=== PATIENT | female | born 1995 | race American Indian/Alaskan Native ===

== ENCOUNTER 2019-05-11 20:10 | Outpatient (CLI) | payer OTHER ==
[2019-05-11 21:55] VITALS: BP 125/60
== END 2019-05-11 21:56 | disposition home or self-care (01) ==
LOC: TRG 20:10
PROVIDERS: ATTEND Obstetrics & Gynecology
DX: O26.892 Other specified pregnancy related conditions, second trimester (principal); R06.02 Shortness of breath; Z3A.22 22 weeks gestation of pregnancy
CPT/HCPCS: 59025

== ENCOUNTER 2019-09-20 20:46 | Inpatient (IN) | payer OTHER ==
--- NOTE | 2019-09-20 22:47 | History and Physical Report ---
History of Present Illness Date of examination: 09/20/19 (41.3 wks IOL for postdates) Date of admission: 09/20/19 20:46 Chief complaint: I'm here for my induction because I am overdue. History of present illness: EDC Calculations LMP: 09/02/2019 EDC Confirmation: 09/10/2019 Gestational Age: 10 5/7 weeks Past History : 1 Term Births: 0 Premature Births: 0 Living Children: 0 Para: 0 Mult. Births: 0 Prev : 0 Prev. attempt? 0 Aborta: 0 Elect. Ab: 0 Spont. 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 lives with FOC works [employer] target ETOH use last time 12/2018. denies tobacco or drugs Infection History Hx of STD: none HIV Risk Eval: no Hepatitis B Risk Eval: low risk Personal hx. of genital herpes: no Partner hx. of genital herpes: no Rash, Viral, or Febrile illness since last LMP? no Varicella/Chicken Pox Status: Immunized TB Risk: no Genetic History Congenital Heart Defect: Mom: no Dad: no Melly Disease: Mom: no Dad: no Thalassemia Mom: no Dad: no Neural Tube Defect Mom: no Dad: no Down's Syndrome Mom: yes Dad: no Comments: pt uncle Inder-Sachs Mom: no Dad: no Sickle Cell Disease/Trait Mom: no Dad: no Hemophilia Mom: no Dad: no Muscular Dystrophy Mom: no Dad: no Cystic Fibrosis Mom: no Dad: no [place] Chorea Mom: no Dad: no Mental Retardation Mom: no Dad: no Fragile X Mom: no Dad: no Other Genetic/Chromosomal Disorder Mom: no Dad: no Child w/other defect Mom: no Dad: no Enviromental Exposures Enviromental Exposures Reviewed Xray Exposure: no Medication, drug, or alcohol use since LMP: no Chemical/Other Exposure: no Exposure to Cat Liter: no Hx of Parvovirus (Fifth Disease): no Occupational Exposure to Children: none Active Medications (reviewed today): ZOFRAN ODT 8 MG ORAL TABLET DISINTEGRATING (ONDANSETRON) 1 po q12hrs prn PNV () Current Allergies (reviewed today): No known allergies Past History - Obstetrical History : 1 Medications and Allergies Allergies Allergy/AdvReac Type Severity Reaction Status Date / Time No Known Allergies Allergy Verified 09/20/19 23:00 Home Medications Medication Instructions Recorded Confirmed Last Taken Type Complete Caplet 1 DAILY 09/20/19 09/19/19 History 0800 - Vital Signs Vital signs: Vital Signs Pulse Pulse Ox 101 H 98 09/20/19 21:11 09/20/19 21:11 Temp Pulse Resp BP Pulse Ox 98.4 F 97 H 16 120/68 97 09/20/19 21:20 09/20/19 22:06 09/20/19 21:20 09/20/19 21:38 09/20/19 22:06 - Physical Exam Breasts: Positive: deferred Cardiovascular: Regular rate, Normal S1, Normal S2 Lungs: Positive: Normal air movement Abdomen: Positive: normal appearance, soft, normal bowel sounds. Negative: distention, tenderness Genitourinary (Female): Positive: normal external genitalia, normal perenium Vulva: both: normal Vagina: Positive: normal moisture. Negative: discharge Cervix: Negative: lesion, discharge Uterus: Positive: normal size, normal contour Anus/Rectum: Positive: normal perianal skin, heme negative. Negative: rectal mass, hemorrhoids Extremities: Positive: normal Deep Tendon Reflex Grade: Normal +2 - Obstetrical FHR: auscultation normal, category 1 Uterine Contraction Monitor Mode: External Cervical Dilatation: 0 Cervical Effacement Percentage: 0 station: -3 Uterine Contraction Pattern: Absent Results Result Diagrams: 09/20/19 23:40 All other labs normal. GBS POSITIVE HBsAg Screen Negative Negative *1 RPR Non Reactive Non Reactive *2 Rubella Antibodies, IgG 4.25 index Immune >0.99 *3 Non-immune <0.90 Equivocal 0.90 - 0.99 Immune >0.99 ABO Grouping B *4 Rh Factor Positive *5 Please note: Prior records for this patient's ABO / Rh type are not available for additional verification. Antibody Screen See Final Results Negative *6 Tests: (2) Ab Scr+Antibody ID ([id number]) ! Antibody Screen Negative Negative *7 ! Antibody Id. #1 TNP (X) *8 Test not performed ! Masood Titer #1 <No Reported Value> *9 ! Antibody Id. #2 <No Reported Value> *10 ! Masood Titer #2 <No Reported Value> *11 Tests: (3) Profile I ([id number]) WBC 7.1 x10E3/uL 3.4-10.8 *12 RBC 4.06 x10E6/uL 3.77-5.28 *13 Hemoglobin [L] 10.5 g/dL 11.1-15.9 *14 Hematocrit [L] 33.2 % 34.0-46.6 *15 MCV 82 fL 79-97 *16 MCH [L] 25.9 pg 26.6-33.0 *17 MCHC 31.6 g/dL 31.5-35.7 *18 RDW 15.4 % 12.3-15.4 *19 Platelets 308 x10E3/uL 150-450 *20 Neutrophils 66 % Not Estab. *21 Lymphs 26 % Not Estab. *22 Monocytes 6 % Not Estab. *23 Eos 2 % Not Estab. *24 Basos 0 % Not Estab. *25 ! Immature Cells <No Reported Value> *26 Neutrophils (Absolute) 4.7 x10E3/uL 1.4-7.0 *27 Lymphs (Absolute) 1.9 x10E3/uL 0.7-3.1 *28 Monocytes(Absolute) 0.4 x10E3/uL 0.1-0.9 *29 Eos (Absolute) 0.1 x10E3/uL 0.0-0.4 *30 Baso (Absolute) 0.0 x10E3/uL 0.0-0.2 *31 ! Immature Granulocytes 0 % Not Estab. *32 ! Immature Grans (Abs) 0.0 x10E3/uL 0.0-0.1 *33 ! NRBC <No Reported Value> *34 Hematology Comments: <No Reported Value> *35 Tests: (4) Panel [id number] ([id number]) HIV Screen 4th Generation wRfx Non Reactive Non Reactive *36 Tests: (5) Gest. Diabetes 1-Hr Screen ([id number]) ! Gestational Diabetes Screen 81 mg/dL 65-139 *37 According to ADA, a glucose threshold of >139 mg/dL after 50-gram load identifies approximately 80% of women with gestational diabetes mellitus, while the sensitivity is further increased to approximately 90% by a threshold of >129 mg/dL. Tests: (6) HCV Ab w/Rflx to Verification ([id number]) ! HCV Ab <0.1 s/co ratio 0.0-0.9 *38 Tests: (7) Comment: ([id number]) ! Comment: SPRCS *39 Non reactive HCV antibody screen is consistent with no HCV infection, unless recent infection is suspected or other evidence exists to indicate HCV infection. Tests: (8) Urine Culture, Routine ([id number]) Urine Culture, Routine Final report *40 Tests: (9) Result ([id number]) ! Result 1 MTWO *41 Greater than 2 organisms recovered, none predominant. Please submit another sample if clinically indicated. Greater than 100,000 colony forming units per mL Assessment and Plan A: 24 y.o. @ 41.3 wks for IOL d/t postdates, Cervical exam cl/th/hi. P: Admit to L&D. Cervidil ordered to be placed. Monitor maternal and status. - Patient Problems (1) Post-dates Onset Date: ~09/21/19 Current Visit: Yes Status: Acute Plan to address problem: IOL to start with cervidil. (2) GBS (group B streptococcus) infection Onset Date: ~09/21/19 Current Visit: Yes Status: Acute Plan to address problem: Antibiotics ordered to be given until delivery.
[2019-09-20] MEDS ORDERED: ONDANSETRON 4 MG/2 ML INJ IV PRN (22:50)
[2019-09-20] MEDS ORDERED: MINERAL OIL 30 ML ORAL LIQD PO PRN (22:50)
[2019-09-20] MEDS ORDERED: TERBUTALINE 1 MG/1 ML INJ IVP PRN (22:50)
[2019-09-20] MEDS ORDERED: PROMETHAZINE 25 MG TAB PO PRN (22:50)
[2019-09-20] MEDS ORDERED: fentaNYL 100 MCG/2 ML INJ IV PRN (22:50)
[2019-09-20] MEDS ORDERED: LIDOCAINE (2%) 20 MG/1 ML VIAL 20 ML MDV INFILTRATI ONE (22:50)
[2019-09-20] MEDS ORDERED: NALOXONE 0.4 MG/1 ML INJ IV PRN (22:50)
[2019-09-20] MEDS ORDERED: DINOPROSTONE 10 MG VAG SUPP VG ONE (22:50)
[2019-09-20] MEDS ORDERED: TERBUTALINE 1 MG/1 ML INJ SUB-Q PRN (22:50)
[2019-09-20] MEDS ORDERED: AMPICILLIN/NS 2 GM/100 ML 2 GM/100 ML BAG IV ONE (22:50)
[2019-09-20] MEDS ORDERED: OXYTOCIN 20 UNIT/1000ML DRIP 20 UNITS/1,000 ML BAG IV SCH (23:00)
[2019-09-21 00:13] LABS: Basophils % (Auto) 0.4 % (0.0-1.8); Eosinophils # (Auto) 0.1 K/mm3 (0.0-0.4); Eosinophils % (Auto) 0.6 % (0.0-4.3); Hematocrit 30.1 % (30.3-42.9); Hemoglobin 10.2 gm/dl (10.1-14.3); Lymphocytes # (Auto) 2.4 K/mm3 (1.2-5.4); Lymphocytes % (Auto) 22.5 % (13.4-35.0); Mean Corpuscular HGB Conc 34 % (30-34); Mean Corpuscular Volume 83 fl (79-97); Monocytes # (Auto) 0.7 K/mm3 (0.0-0.8); Monocytes % (Auto) 6.2 % (0.0-7.3); Platelet Count 309 K/mm3 (140-440); Red Blood Count 3.65 M/mm3 (3.65-5.03); Red Cell Distribution Width 15.4 % (13.2-15.2)
--- NOTE | 2019-09-21 02:08 | Event Note ---
Date: 09/21/19 (SROM, light mec) Received a call from RN to state that the pt had SROM for light mec. Exam basically unchanged. Will start low dose pitocin for now.
[2019-09-21] MEDS ORDERED: OXYTOCIN DRIP 30,000 MILLIUNITS/500 ML BAG IV ONE (02:14)
[2019-09-21] MEDS ORDERED: OXYTOCIN DRIP 30 UNITS/500 ML BAG IV SCH ×3 (03:00→08:00)
[2019-09-21] MEDS: AMPICILLIN/NS 1 GM/50 ML 1 GM/50 ML BAG IV SCH ×4 (07:02→19:57)
--- NOTE | 2019-09-21 08:37 | Progress Note ---
Assessment and Plan reviewed plan with patient, some exceptions might be warranted based on situation, patient verbalizes understanding. Will start increasing pitocin q4hrs for adequate labor. limit SVE d/t SROM @ 0200. Plan to reassess @ noon if no signs of progression of labor. Patient aware she may ask for pain medication or epidural any time she feels she needs it. 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 (3) GBS (group B streptococcus) infection Onset Date: ~09/21/19 Current Visit: Yes Status: Acute Plan to address problem: ampicillin q4hrs until delivery Subjective - Subjective Date of service: 09/21/19 Principal diagnosis: IOL @ 41+4, IOL for postdates, light mec fluid, GBS + Patient reports: loss of fluid, movement normal, contractions, no new complaints (denies need for pain medication), no vaginal bleeding Objective - Vital Signs Vital Signs: Vital Signs - 12hr 09/20/19 09/20/19 09/20/19 21:11 21:16 21:20 Temperature 98.4 F Pulse Rate 101 H 99 H 96 H Respiratory 16 Rate Blood Pressure Blood Pressure 120/68 [Left] O2 Sat by Pulse 98 96 99 Oximetry 09/20/19 09/20/19 09/20/19 21:21 21:26 21:31 Temperature Pulse Rate 95 H 93 H 94 H Respiratory Rate Blood Pressure Blood Pressure [Left] O2 Sat by Pulse 98 98 97 Oximetry 09/20/19 09/20/19 09/20/19 21:36 21:38 21:41 Temperature Pulse Rate 98 H 96 H 104 H Respiratory Rate Blood Pressure 120/68 Blood Pressure [Left] O2 Sat by Pulse 98 97 Oximetry 09/20/19 09/20/19 09/20/19 21:46 21:51 21:56 Temperature Pulse Rate 110 H 93 H 95 H Respiratory Rate Blood Pressure Blood Pressure [Left] O2 Sat by Pulse 97 97 97 Oximetry 09/20/19 09/20/19 09/21/19 22:01 22:06 01:45 Temperature 98.4 F Pulse Rate 90 97 H Respiratory Rate Blood Pressure Blood Pressure [Left] O2 Sat by Pulse 97 97 Oximetry 0409/21/19 09/21/19 02:20 02:23 02:25 Temperature Pulse Rate 91 H 91 H 88 Respiratory Rate Blood Pressure 116/54 Blood Pressure [Left] O2 Sat by Pulse 98 97 Oximetry 09/21/19 09/21/19 09/21/19 02:30 02:35 02:40 Temperature Pulse Rate 94 H 85 88 Respiratory Rate Blood Pressure Blood Pressure [Left] O2 Sat by Pulse 97 97 97 Oximetry 09/21/19 09/21/19 09/21/19 02:45 02:50 02:51 Temperature Pulse Rate 86 83 83 Respiratory Rate Blood Pressure 105/56 Blood Pressure [Left] O2 Sat by Pulse 97 97 Oximetry 09/21/19 09/21/19 09/21/19 02:55 03:00 03:01 Temperature Pulse Rate 87 88 92 H Respiratory Rate Blood Pressure Blood Pressure [Left] O2 Sat by Pulse 97 96 94 Oximetry 09/21/19 09/21/19 09/21/19 03:05 03:07 03:10 Temperature Pulse Rate 93 H 88 100 H Respiratory Rate Blood Pressure Blood Pressure [Left] O2 Sat by Pulse 95 94 96 Oximetry 09/21/19 09/21/19 09/21/19 03:15 03:20 03:21 Temperature Pulse Rate 84 88 84 Respiratory Rate Blood Pressure 108/53 Blood Pressure [Left] O2 Sat by Pulse 96 97 Oximetry 09/21/19 09/21/19 09/21/19 03:25 03:30 03:32 Temperature Pulse Rate 87 81 94 H Respiratory Rate Blood Pressure Blood Pressure [Left] O2 Sat by Pulse 97 96 94 Oximetry 09/21/19 09/21/19 09/21/19 03:35 03:40 03:45 Temperature Pulse Rate 88 84 92 H Respiratory Rate Blood Pressure Blood Pressure [Left] O2 Sat by Pulse 95 96 95 Oximetry 09/21/19 09/21/19 09/21/19 03:50 03:51 03:55 Temperature Pulse Rate 83 78 80 Respiratory Rate Blood Pressure 106/54 Blood Pressure [Left] O2 Sat by Pulse 97 96 Oximetry 09/21/19 09/21/19 09/21/19 04:11 04:16 04:21 Temperature Pulse Rate 96 H 98 H 86 Respiratory Rate Blood Pressure 102/56 Blood Pressure [Left] O2 Sat by Pulse 98 97 97 Oximetry 09/21/19 09/21/19 09/21/19 04:26 04:31 04:36 Temperature Pulse Rate 91 H 94 H 96 H Respiratory Rate Blood Pressure Blood Pressure [Left] O2 Sat by Pulse 97 98 97 Oximetry 09/21/19 09/21/19 09/21/19 04:41 04:46 04:51 Temperature Pulse Rate 82 93 H 83 Respiratory Rate Blood Pressure 108/51 Blood Pressure [Left] O2 Sat by Pulse 97 97 97 Oximetry 09/21/19 09/21/19 09/21/19 04:56 05:01 05:06 Temperature Pulse Rate 94 H 91 H 94 H Respiratory Rate Blood Pressure Blood Pressure [Left] O2 Sat by Pulse 98 98 98 Oximetry 09/21/19 09/21/19 09/21/19 05:11 05:16 05:21 Temperature Pulse Rate 82 82 81 Respiratory Rate Blood Pressure Blood Pressure [Left] O2 Sat by Pulse 98 97 98 Oximetry 09/21/19 09/21/19 09/21/19 05:23 05:26 05:31 Temperature Pulse Rate 82 101 H 82 Respiratory Rate Blood Pressure 104/58 Blood Pressure [Left] O2 Sat by Pulse 99 97 Oximetry 09/21/19 09/21/19 09/21/19 05:36 05:41 05:46 Temperature Pulse Rate 89 87 86 Respiratory Rate Blood Pressure Blood Pressure [Left] O2 Sat by Pulse 97 97 97 Oximetry 09/21/19 09/21/19 09/21/19 05:51 05:56 06:01 Temperature Pulse Rate 90 84 81 Respiratory Rate Blood Pressure 121/65 Blood Pressure [Left] O2 Sat by Pulse 98 97 98 Oximetry 09/21/19 09/21/19 09/21/19 06:06 06:11 06:16 Temperature Pulse Rate 86 81 89 Respiratory Rate Blood Pressure Blood Pressure [Left] O2 Sat by Pulse 96 97 100 Oximetry 09/21/19 09/21/19 09/21/19 06:21 06:26 06:31 Temperature Pulse Rate 95 H 90 86 Respiratory Rate Blood Pressure Blood Pressure [Left] O2 Sat by Pulse 99 99 97 Oximetry 09/21/19 09/21/19 09/21/19 06:36 06:41 06:46 Temperature Pulse Rate 87 82 88 Respiratory Rate Blood Pressure Blood Pressure [Left] O2 Sat by Pulse 97 96 97 Oximetry 09/21/19 09/21/1909/20/20 06:51 06:56 07:01 Temperature Pulse Rate 87 80 86 Respiratory Rate Blood Pressure 135/66 Blood Pressure [Left] O2 Sat by Pulse 98 98 98 Oximetry 09/21/19 09/21/19 09/21/19 07:06 07:11 07:16 Temperature Pulse Rate 86 86 91 H Respiratory Rate Blood Pressure Blood Pressure [Left] O2 Sat by Pulse 98 98 97 Oximetry 09/21/19 09/21/19 09/21/19 07:21 07:26 07:30 Temperature Pulse Rate 93 H 85 92 H Respiratory Rate Blood Pressure 137/63 Blood Pressure [Left] O2 Sat by Pulse 97 96 94 Oximetry 09/21/19 09/21/19 09/21/19 07:31 07:51 08:21 Temperature Pulse Rate 92 H 93 H 100 H Respiratory Rate Blood Pressure 113/78 117/76 Blood Pressure [Left] O2 Sat by Pulse 98 Oximetry - Exam Breasts: normal Cardiovascular: Regular rate Lungs: Clear to auscultation, Normal air movement Abdomen: Present: normal appearance, soft Vulva: both: normal Uterus: Present: normal, fundal height above umbilicus FHR: auscultation normal, category 1 Uterine Contraction Monitor Mode: External Uterine Contraction Frequency (min): 2-4 Uterine Contraction Duration: 60 Uterine Contraction Pattern: Regular Uterine Tone Measurement Phase: Contraction Uterine Contraction Intensity: Mild Extremities: normal Deep Tendon Reflex Grade: Normal +2 - Labs Labs: Abnormal Labs 09/20/19 23:40 Hct 30.1 L RDW 15.4 H Seg Neutrophils % 70.3 H Laboratory Results - last 24 hr 09/20/19 09/20/19 23:40 23:40 WBC 10.5 RBC 3.65 Hgb 10.2 Hct 30.1 L MCV 83 MCH 28 MCHC 34 RDW 15.4 H Plt Count 309 Lymph % (Auto) 22.5 [place] % (Auto) 6.2 Eos % (Auto) 0.6 Baso % (Auto) 0.4 Lymph # 2.4 [place] # 0.7 Eos # 0.1 Baso # 0.0 Seg Neutrophils % 70.3 H Seg Neutrophils # 7.4 Blood Type B POSITIVE Antibody Screen Negative
--- NOTE | 2019-09-21 10:25 | Event Note ---
Date: 09/21/19 Plan of care and nature of serial IOL were d/w pt and questions were addressed and answered. Pt agrees with plan of care at this tiem
[2019-09-21] MEDS: LACTATED RINGERS 1,000 ML IV SCH ×3 (11:18→19:57)
--- NOTE | 2019-09-21 12:43 | Progress Note ---
Assessment and Plan patient doing well with ctx, SVE 4/70/0, posterior. Pt agreed to having IUPC placed. Placed without difficulty. Will continue to titrate pitocin for adequate labor. - Patient Problems (1) 41 weeks gestation of Current Visit: Yes Status: Acute (2) Meconium in amniotic fluid Current Visit: Yes Status: Acute (3) GBS (group B streptococcus) infection Onset Date: ~09/21/19 Current Visit: Yes Status: Acute Subjective - Subjective Date of service: 09/21/19 Principal diagnosis: IOL @ 41+4, IOL for postdates, light mec fluid, GBS + Patient reports: loss of fluid, movement normal, contractions, no new complaints (denies need for pain medication), no vaginal bleeding Objective - Vital Signs Vital Signs: Vital Signs - 12hr 09/21/19 09/21/19 09/21/19 01:45 02:20 02:23 Temperature 98.4 F Pulse Rate 91 H 91 H Respiratory Rate Blood Pressure 116/54 O2 Sat by Pulse 98 Oximetry 09/21/19 09/21/19 09/21/19 02:25 02:30 02:35 Temperature Pulse Rate 88 94 H 85 Respiratory Rate Blood Pressure O2 Sat by Pulse 97 97 97 Oximetry 09/21/19 09/21/19 09/21/19 02:40 02:45 02:50 Temperature Pulse Rate 88 86 83 Respiratory Rate Blood Pressure O2 Sat by Pulse 97 97 97 Oximetry 09/21/19 09/21/19 09/21/19 02:51 02:55 03:00 Temperature Pulse Rate 83 87 88 Respiratory Rate Blood Pressure 105/56 O2 Sat by Pulse 97 96 Oximetry 09/21/19 09/21/19 09/21/19 03:01 03:05 03:07 Temperature Pulse Rate 92 H 93 H 88 Respiratory Rate Blood Pressure O2 Sat by Pulse 94 95 94 Oximetry 09/21/19 09/21/19 09/21/19 03:10 03:15 03:20 Temperature Pulse Rate 100 H 84 88 Respiratory Rate Blood Pressure O2 Sat by Pulse 96 96 97 Oximetry 09/21/19 09/21/19 09/21/19 03:21 03:25 03:30 Temperature Pulse Rate 84 87 81 Respiratory Rate Blood Pressure 108/53 O2 Sat by Pulse 97 96 Oximetry 09/21/19 09/21/19 09/21/19 03:32 03:35 03:40 Temperature Pulse Rate 94 H 88 84 Respiratory Rate Blood Pressure O2 Sat by Pulse 94 95 96 Oximetry 09/21/19 09/21/19 09/21/19 03:45 03:50 03:51 Temperature Pulse Rate 92 H 83 78 Respiratory Rate Blood Pressure 106/54 O2 Sat by Pulse 95 97 Oximetry 09/21/19 09/21/19 09/21/19 03:55 04:11 04:16 Temperature Pulse Rate 80 96 H 98 H Respiratory Rate Blood Pressure O2 Sat by Pulse 96 98 97 Oximetry 09/21/19 09/21/19 09/21/19 04:21 04:26 04:31 Temperature Pulse Rate 86 91 H 94 H Respiratory Rate Blood Pressure 102/56 O2 Sat by Pulse 97 97 98 Oximetry 09/21/19 09/21/19 09/21/19 04:36 04:41 04:46 Temperature Pulse Rate 96 H 82 93 H Respiratory Rate Blood Pressure O2 Sat by Pulse 97 97 97 Oximetry 09/21/19 09/21/19 09/21/19 04:51 04:56 05:01 Temperature Pulse Rate 83 94 H 91 H Respiratory Rate Blood Pressure 108/51 O2 Sat by Pulse 97 98 98 Oximetry 09/21/19 09/21/19 09/21/19 05:06 05:11 05:16 Temperature Pulse Rate 94 H 82 82 Respiratory Rate Blood Pressure O2 Sat by Pulse 98 98 97 Oximetry 09/21/19 09/21/19 09/21/19 05:21 05:23 05:26 Temperature Pulse Rate 81 82 101 H Respiratory Rate Blood Pressure 104/58 O2 Sat by Pulse 98 99 Oximetry 09/21/19 09/21/19 09/21/19 05:31 05:36 05:41 Temperature Pulse Rate 82 89 87 Respiratory Rate Blood Pressure O2 Sat by Pulse 97 97 97 Oximetry 09/21/19 09/21/19 09/21/19 05:46 05:51 05:56 Temperature Pulse Rate 86 90 84 Respiratory Rate Blood Pressure 121/65 O2 Sat by Pulse 97 98 97 Oximetry 09/21/19 09/21/19 09/21/19 06:01 06:06 06:11 Temperature Pulse Rate 81 86 81 Respiratory Rate Blood Pressure O2 Sat by Pulse 98 96 97 Oximetry 04/28/20 04/28/20 04/28/20 06:16 06:21 06:26 Temperature Pulse Rate 89 95 H 90 Respiratory Rate Blood Pressure O2 Sat by Pulse 100 99 99 Oximetry 09/21/19 09/21/19 09/21/19 06:31 06:36 06:41 Temperature Pulse Rate 86 87 82 Respiratory Rate Blood Pressure O2 Sat by Pulse 97 97 96 Oximetry 09/21/19 09/21/19 09/21/19 06:46 06:51 06:56 Temperature Pulse Rate 88 87 80 Respiratory Rate Blood Pressure 135/66 O2 Sat by Pulse 97 98 98 Oximetry 09/21/19 09/21/19 09/21/19 07:01 07:06 07:10 Temperature 97.8 F Pulse Rate 86 86 Respiratory 18 Rate Blood Pressure O2 Sat by Pulse 98 98 Oximetry 09/21/19 09/21/19 09/21/19 07:11 07:16 07:21 Temperature Pulse Rate 86 91 H 93 H Respiratory Rate Blood Pressure 137/63 O2 Sat by Pulse 98 97 97 Oximetry 09/21/19 09/21/19 09/21/19 07:26 07:30 07:31 Temperature Pulse Rate 85 92 H 92 H Respiratory Rate Blood Pressure O2 Sat by Pulse 96 94 98 Oximetry 09/21/19 09/21/19 09/21/19 07:51 08:21 08:52 Temperature Pulse Rate 93 H 100 H 87 Respiratory Rate Blood Pressure 113/78 117/76 113/68 O2 Sat by Pulse Oximetry 09/21/19 09/21/19 09/21/19 09:10 09:21 10:18 Temperature 97.9 F Pulse Rate 91 H 102 H Respiratory 20 Rate Blood Pressure 129/86 105/68 O2 Sat by Pulse Oximetry 09/21/19 09/21/19 09/21/19 10:22 11:54 11:55 Temperature 98.2 F Pulse Rate 83 84 Respiratory 18 Rate Blood Pressure 128/83 121/61 O2 Sat by Pulse Oximetry 09/21/19 12:23 Temperature Pulse Rate 85 Respiratory Rate Blood Pressure 127/65 O2 Sat by Pulse Oximetry - Exam Breasts: normal Cardiovascular: Regular rate Lungs: Clear to auscultation, Normal air movement Abdomen: Present: normal appearance, soft Vulva: both: normal Uterus: Present: normal, fundal height above umbilicus FHR: category 1 Uterine Contraction Monitor Mode: Internal Cervical Dilatation: 4 Cervical Effacement Percentage: 70 station: 0 Uterine Contraction Frequency (min): 2-3.5 Uterine Contraction Duration: 60 Uterine Contraction Pattern: Regular Uterine Tone Measurement Phase: Contraction Uterine Contraction Intensity: Mild Extremities: normal Deep Tendon Reflex Grade: Normal +2 - Labs Labs: Abnormal Labs 09/20/19 23:40 Hct 30.1 L RDW 15.4 H Seg Neutrophils % 70.3 H Laboratory Results - last 24 hr 09/20/19 09/20/19 23:40 23:40 WBC 10.5 RBC 3.65 Hgb 10.2 Hct 30.1 L MCV 83 MCH 28 MCHC 34 RDW 15.4 H Plt Count 309 Lymph % (Auto) 22.5 [place] % (Auto) 6.2 Eos % (Auto) 0.6 Baso % (Auto) 0.4 Lymph # 2.4 [place] # 0.7 Eos # 0.1 Baso # 0.0 Seg Neutrophils % 70.3 H Seg Neutrophils # 7.4 Blood Type B POSITIVE Antibody Screen Negative
--- NOTE | 2019-09-21 15:51 | Progress Note ---
Assessment and Plan Patient called out with "I think it's time" SVE with very little change. pt c/o lower back pain and pressure. Assisted patient to hands and knees, FOC given direction on how to apply counter pressure. - Patient Problems (1) 41 weeks gestation of Current Visit: Yes Status: Acute (2) Meconium in amniotic fluid Current Visit: Yes Status: Acute Plan to address problem: NICU and [employer] aware (3) GBS (group B streptococcus) infection Onset Date: ~09/21/19 Current Visit: Yes Status: Acute Plan to address problem: ampicillin q4hrs until delivery Subjective - Subjective Date of service: 09/21/19 Principal diagnosis: IOL @ 41+4, IOL for postdates, light mec fluid, GBS + Patient reports: loss of fluid, movement normal, contractions, no new complaints (denies need for pain medication), no vaginal bleeding Objective - Vital Signs Vital Signs: Vital Signs - 12hr 09/21/19 09/21/19 09/21/19 03:40 03:45 03:50 Temperature Pulse Rate 84 92 H 83 Respiratory Rate Blood Pressure O2 Sat by Pulse 96 95 97 Oximetry 09/21/19 09/21/19 09/21/19 03:51 03:55 04:11 Temperature Pulse Rate 78 80 96 H Respiratory Rate Blood Pressure 106/54 O2 Sat by Pulse 96 98 Oximetry 09/21/19 09/21/19 09/21/19 04:16 04:21 04:26 Temperature Pulse Rate 98 H 86 91 H Respiratory Rate Blood Pressure 102/56 O2 Sat by Pulse 97 97 97 Oximetry 09/21/19 09/21/19 09/21/19 04:31 04:36 04:41 Temperature Pulse Rate 94 H 96 H 82 Respiratory Rate Blood Pressure O2 Sat by Pulse 98 97 97 Oximetry 09/21/19 09/21/19 09/21/19 04:46 04:51 04:56 Temperature Pulse Rate 93 H 83 94 H Respiratory Rate Blood Pressure 108/51 O2 Sat by Pulse 97 97 98 Oximetry 09/21/19 09/21/19 09/21/19 05:01 05:06 05:11 Temperature Pulse Rate 91 H 94 H 82 Respiratory Rate Blood Pressure O2 Sat by Pulse 98 98 98 Oximetry 09/21/19 09/21/19 09/21/19 05:16 05:21 05:23 Temperature Pulse Rate 82 81 82 Respiratory Rate Blood Pressure 104/58 O2 Sat by Pulse 97 98 Oximetry 09/21/19 09/21/19 09/21/19 05:26 05:31 05:36 Temperature Pulse Rate 101 H 82 89 Respiratory Rate Blood Pressure O2 Sat by Pulse 99 97 97 Oximetry 09/21/19 09/21/19 09/21/19 05:41 05:46 05:51 Temperature Pulse Rate 87 86 90 Respiratory Rate Blood Pressure 121/65 O2 Sat by Pulse 97 97 98 Oximetry 09/21/19 09/21/19 09/21/19 05:56 06:01 06:06 Temperature Pulse Rate 84 81 86 Respiratory Rate Blood Pressure O2 Sat by Pulse 97 98 96 Oximetry 09/21/19 09/21/19 09/21/19 06:11 06:16 06:21 Temperature Pulse Rate 81 89 95 H Respiratory Rate Blood Pressure O2 Sat by Pulse 97 100 99 Oximetry 09/21/19 09/21/19 09/21/19 06:26 06:31 06:36 Temperature Pulse Rate 90 86 87 Respiratory Rate Blood Pressure O2 Sat by Pulse 99 97 97 Oximetry 09/21/19 09/21/19 09/21/19 06:41 06:46 06:51 Temperature Pulse Rate 82 88 87 Respiratory Rate Blood Pressure 135/66 O2 Sat by Pulse 96 97 98 Oximetry 09/21/19 09/21/19 09/21/19 06:56 07:01 07:06 Temperature Pulse Rate 80 86 86 Respiratory Rate Blood Pressure O2 Sat by Pulse 98 98 98 Oximetry 09/21/19 09/21/19 09/21/19 07:10 07:11 07:16 Temperature 97.8 F Pulse Rate 86 91 H Respiratory 18 Rate Blood Pressure O2 Sat by Pulse 98 97 Oximetry 09/21/19 09/21/19 09/21/19 07:21 07:26 07:30 Temperature Pulse Rate 93 H 85 92 H Respiratory Rate Blood Pressure 137/63 O2 Sat by Pulse 97 96 94 Oximetry 09/21/19 09/21/19 09/21/19 07:31 07:51 08:21 Temperature Pulse Rate 92 H 93 H 100 H Respiratory Rate Blood Pressure 113/78 117/76 O2 Sat by Pulse 98 Oximetry 09/21/19 09/21/19 09/21/19 08:52 09:10 09:21 Temperature 97.9 F Pulse Rate 87 91 H Respiratory 20 Rate Blood Pressure 113/68 129/86 O2 Sat by Pulse Oximetry 09/21/19 09/21/19 09/21/19 10:18 10:22 11:54 Temperature Pulse Rate 102 H 83 84 Respiratory Rate Blood Pressure 105/68 128/83 121/61 O2 Sat by Pulse Oximetry 09/21/19 09/21/19 09/21/19 11:55 12:23 12:52 Temperature 98.2 F Pulse Rate 85 82 Respiratory 18 Rate Blood Pressure 127/65 129/64 O2 Sat by Pulse Oximetry 09/21/19 09/21/19 09/21/19 13:22 13:52 14:21 Temperature Pulse Rate 79 76 83 Respiratory Rate Blood Pressure 135/78 136/81 134/63 O2 Sat by Pulse Oximetry 09/21/19 09/21/19 09/21/19 14:30 14:52 15:22 Temperature 98.0 F Pulse Rate 76 105 H Respiratory 20 Rate Blood Pressure 116/58 131/86 O2 Sat by Pulse Oximetry - Exam Breasts: normal Cardiovascular: Regular rate Lungs: Normal air movement Abdomen: Present: normal appearance, soft Uterus: Present: normal, fundal height above umbilicus FHR: category 1 Uterine Contraction Monitor Mode: Internal Cervical Dilatation: 5 Cervical Effacement Percentage: 80 station: 0 Uterine Contraction Frequency (min): 2-3 Uterine Contraction Duration: 60 Uterine Contraction Pattern: Regular Uterine Tone Measurement Phase: Contraction Uterine Contraction Intensity: Mild Extremities: normal Deep Tendon Reflex Grade: Normal +2 - Labs Labs: Abnormal Labs 09/20/19 23:40 Hct 30.1 L RDW 15.4 H Seg Neutrophils % 70.3 H Laboratory Results - last 24 hr 09/20/19 09/20/19 23:40 23:40 WBC 10.5 RBC 3.65 Hgb 10.2 Hct 30.1 L MCV 83 MCH 28 MCHC 34 RDW 15.4 H Plt Count 309 Lymph % (Auto) 22.5 [place] % (Auto) 6.2 Eos % (Auto) 0.6 Baso % (Auto) 0.4 Lymph # 2.4 [place] # 0.7 Eos # 0.1 Baso # 0.0 Seg Neutrophils % 70.3 H Seg Neutrophils # 7.4 Blood Type B POSITIVE Antibody Screen Negative
--- NOTE | 2019-09-21 17:51 | Anesthesia Consultation ---
Anesthesia Consult and Med Hx Date of service: 09/21/19 - Airway Anesthetic Teeth Evaluation: Good ROM Head & Neck: Adequate Mental/Hyoid Distance: Adequate Mallampati Class: Class II Intubation Access Assessment: Probably Good - Pulmonary Exam CTA: Yes - Cardiac Exam Cardiac Exam: RRR - Pre-Operative Health Status ASA Pre-Surgery Classification: ASA2 Proposed Anesthetic Plan: Epidural - Pulmonary Hx Smoking: No Hx Asthma: No Hx Respiratory Symptoms: No SOB: No COPD: No Home Oxygen Therapy: No Hx Pneumonia: No Hx Sleep Apnea: No - Cardiovascular System Hx Hypertension: No Hx Coronary Artery Disease: No Hx Heart Attack/AMI: No Hx Angina: No Hx Percutaneous Transluminal Coronary Angioplasty (PTCA): No Hx Cardia Arrhythmia: No Hx Pacemaker: No Hx Internal Defibrillator: No Hx Valvular Heart Disease: No Hx Heart Murmur: No Hx Peripheral Vascular Disease: No - Central Nervous System Hx Neuromuscular Disorder: No Hx Seizures: No CVA: No Hx Back Pain: No Hx Psychiatric Problems: No - Gastrointestinal Hx Ulcer: No Hx Gastroesophageal Reflux Disease: No - Endocrine Hx Renal Disease: No Hx End Stage Renal Disease: No Hx Cirrhosis: No Hx Liver Disease: No Hx Insulin Dependent Diabetes: No Hx Non-Insulin Dependent Diabetes: No Hx Thyroid Disease: No Hx Hypothyroidism: No Hx Hyperthyroidism: No - Hematic Hx Anemia: No Hx Sickle Cell Disease: No - Other Systems Hx Alcohol Use: No Hx Substance Use: No Hx Cancer: No Hx Obesity: Yes
[2019-09-21] MEDS ORDERED: NALOXONE 2 MG/2 ML INJ IV PRN (17:52)
[2019-09-21] MEDS ORDERED: ePHEDrine SULFATE 50 MG/1 ML INJ IV PRN (17:52)
[2019-09-21] MEDS ORDERED: fentaNYL-BUPIV 2 MCG/ML-0.125% 200 MCG/100 ML BAG EPIDURAL SCH (18:00)
[2019-09-21] MEDS ORDERED: DEXMEDETOMIDINE 200 MCG/2 ML VIAL IV ONE (18:25)
--- NOTE | 2019-09-21 19:17 | Progress Note ---
Labor Epidural - Labor Epidural Start Time: 18:35 Stop Time: 18:39 Performed by:: PIPE LLOYD Procedure: Patient is requesting combined spinal epidural for labor and pain. H&P, labs were reviewed. All questions and concerns were answered. Informed consent was obtained. Timeout performed. Patient in sitting position on side of bed. Sterile prep and drape was performed. [3] mL 1% lidocaine skin wheal at L [3]-L [4]. 18-gauge Touhy epidural needle advanced to [id number] using air technique, [7cm]. 27-gauge spinal needle advanced [clear positive free- flowing] CSF. spinal dose of [Precedex 10 mcg]. Epidural catheter advanced to [12] cm. [Negative] Aspiration, [negative] test dose. Sterile dressing applied. Patient tolerated procedure well.
--- NOTE | 2019-09-21 19:19 | Progress Note ---
Assessment and Plan patient comfortable s/p epidural placement. She is happy she decided to proceed with epidural. SVE now 6-/-1. Plan to continue laboring and position changes, anticipate . - Patient Problems (1) 41 weeks gestation of Current Visit: Yes Status: Acute (2) Meconium in amniotic fluid Current Visit: Yes Status: Acute (3) GBS (group B streptococcus) infection Onset Date: ~09/21/19 Current Visit: Yes Status: Acute Subjective - Subjective Date of service: 09/21/19 Principal diagnosis: IOL @ 41+4, IOL for postdates, light mec fluid, GBS + Patient reports: loss of fluid, movement normal, contractions, no new complaints (denies need for pain medication), no vaginal bleeding Objective - Vital Signs Vital Signs: Vital Signs - 12hr 09/21/19 09/21/19 09/21/19 07:21 07:26 07:30 Temperature Pulse Rate 93 H 85 92 H Respiratory Rate Blood Pressure 137/63 O2 Sat by Pulse 97 96 94 Oximetry 09/21/19 09/21/19 09/21/19 07:31 07:51 08:21 Temperature Pulse Rate 92 H 93 H 100 H Respiratory Rate Blood Pressure 113/78 117/76 O2 Sat by Pulse 98 Oximetry 09/21/19 09/21/19 09/21/19 08:52 09:10 09:21 Temperature 97.9 F Pulse Rate 87 91 H Respiratory 20 Rate Blood Pressure 113/68 129/86 O2 Sat by Pulse Oximetry 09/21/19 09/21/19 09/21/19 10:18 10:22 11:54 Temperature Pulse Rate 102 H 83 84 Respiratory Rate Blood Pressure 105/68 128/83 121/61 O2 Sat by Pulse Oximetry 09/21/19 09/21/19 09/21/19 11:55 12:23 12:52 Temperature 98.2 F Pulse Rate 85 82 Respiratory 18 Rate Blood Pressure 127/65 129/64 O2 Sat by Pulse Oximetry 09/21/19 09/21/19 09/21/19 13:22 13:52 14:21 Temperature Pulse Rate 79 76 83 Respiratory Rate Blood Pressure 135/78 136/81 134/63 O2 Sat by Pulse Oximetry 09/21/19 09/21/19 09/21/19 14:30 14:52 15:22 Temperature 98.0 F Pulse Rate 76 105 H Respiratory 20 Rate Blood Pressure 116/58 131/86 O2 Sat by Pulse Oximetry 09/21/19 09/21/19 09/21/19 16:22 16:51 17:22 Temperature Pulse Rate 82 85 77 Respiratory Rate Blood Pressure 115/55 138/84 117/56 O2 Sat by Pulse Oximetry 09/21/19 09/21/19 09/21/19 17:52 18:22 18:33 Temperature Pulse Rate 84 71 85 Respiratory Rate Blood Pressure 120/57 121/59 O2 Sat by Pulse 99 Oximetry 09/21/19 09/21/19 09/21/19 18:38 18:43 18:47 Temperature Pulse Rate 86 80 90 Respiratory Rate Blood Pressure 136/73 O2 Sat by Pulse 99 99 Oximetry 09/21/19 09/21/19 09/21/19 18:48 18:50 18:53 Temperature Pulse Rate 92 H 100 H 90 Respiratory Rate Blood Pressure 138/80 135/68 O2 Sat by Pulse 100 100 Oximetry 09/21/19 09/21/19 09/21/19 18:55 18:57 18:58 Temperature Pulse Rate 96 H 91 H 88 Respiratory Rate Blood Pressure 124/62 137/68 O2 Sat by Pulse 100 Oximetry 09/21/19 09/21/19 09/21/19 18:59 19:01 19:03 Temperature Pulse Rate 91 H 91 H 89 Respiratory Rate Blood Pressure 151/63 131/59 126/59 O2 Sat by Pulse 98 Oximetry 09/21/19 09/21/19 09/21/19 19:06 19:08 19:11 Temperature Pulse Rate 89 101 H 93 H Respiratory Rate Blood Pressure 129/60 111/54 O2 Sat by Pulse 97 Oximetry 09/21/19 19:13 Temperature Pulse Rate 95 H Respiratory Rate Blood Pressure O2 Sat by Pulse 98 Oximetry - Exam Breasts: normal Cardiovascular: Regular rate Lungs: Normal air movement Abdomen: Present: normal appearance, soft Vulva: both: normal Uterus: Present: normal FHR: category 2 Uterine Contraction Monitor Mode: Internal Cervical Dilatation: 6.5 Cervical Effacement Percentage: 80 station: -1 Uterine Contraction Frequency (min): 2-5 Uterine Contraction Duration: 60 Uterine Contraction Pattern: Regular Uterine Tone Measurement Phase: Contraction Uterine Contraction Intensity: Moderate Extremities: normal Deep Tendon Reflex Grade: Normal +2 - Labs Labs: Abnormal Labs 09/20/19 23:40 Hct 30.1 L RDW 15.4 H Seg Neutrophils % 70.3 H Laboratory Results - last 24 hr 09/20/19 09/20/19 23:40 23:40 WBC 10.5 RBC 3.65 Hgb 10.2 Hct 30.1 L MCV 83 MCH 28 MCHC 34 RDW 15.4 H Plt Count 309 Lymph % (Auto) 22.5 [place] % (Auto) 6.2 Eos % (Auto) 0.6 Baso % (Auto) 0.4 Lymph # 2.4 [place] # 0.7 Eos # 0.1 Baso # 0.0 Seg Neutrophils % 70.3 H Seg Neutrophils # 7.4 Blood Type B POSITIVE Antibody Screen Negative
[2019-09-21] MEDS: ePHEDrine SULFATE 50 MG/1 ML INJ IV PRN ×2 (19:37→19:59)
[2019-09-21] MEDS ORDERED: BICITRA ORAL LIQD 30ML PO ONE (22:25)
[2019-09-21] MEDS ORDERED: METOCLOPRAMIDE 10 MG/2 ML INJ IV ONE (22:25)
[2019-09-21] MEDS ORDERED: FAMOTIDINE 20 MG/2 ML INJ IV ONE (22:25)
--- NOTE | 2019-09-21 22:25 | Progress Note ---
Assessment and Plan no change in SVE since last exam. discussed with patient concern that she has not made significant change in several hours. pt would like to continue to laboe, advised would give 2 more hours if baby tolerated labor and if no change would need to strongly consider surgical . Patient and s/o agree. - Patient Problems (1) 41 weeks gestation of Current Visit: Yes Status: Acute (2) Meconium in amniotic fluid Current Visit: Yes Status: Acute (3) GBS (group B streptococcus) infection Onset Date: ~09/21/19 Current Visit: Yes Status: Acute Subjective - Subjective Date of service: 09/21/19 Principal diagnosis: IOL @ 41+4, IOL for postdates, light mec fluid, GBS + Patient reports: loss of fluid, movement normal, no new complaints (Comfortable with eidural), no vaginal bleeding Objective - Vital Signs Vital Signs: Vital Signs - 12hr 09/21/19 09/21/19 09/21/19 10:18 10:22 11:54 Temperature Pulse Rate 102 H 83 84 Respiratory Rate Blood Pressure 105/68 128/83 121/61 Blood Pressure [Left] O2 Sat by Pulse Oximetry 09/21/19 09/21/19 09/21/19 11:55 12:23 12:52 Temperature 98.2 F Pulse Rate 85 82 Respiratory 18 Rate Blood Pressure 127/65 129/64 Blood Pressure [Left] O2 Sat by Pulse Oximetry 09/21/19 09/21/19 09/21/19 13:22 13:52 14:21 Temperature Pulse Rate 79 76 83 Respiratory Rate Blood Pressure 135/78 136/81 134/63 Blood Pressure [Left] O2 Sat by Pulse Oximetry 09/21/19 09/21/19 09/21/19 14:30 14:52 15:22 Temperature 98.0 F Pulse Rate 76 105 H Respiratory 20 Rate Blood Pressure 116/58 131/86 Blood Pressure [Left] O2 Sat by Pulse Oximetry 09/21/19 09/21/19 09/21/19 16:22 16:30 16:51 Temperature 98.0 F Pulse Rate 82 85 Respiratory 18 Rate Blood Pressure 115/55 138/84 Blood Pressure [Left] O2 Sat by Pulse Oximetry 09/21/19 09/21/19 09/21/19 17:22 17:52 18:22 Temperature Pulse Rate 77 84 71 Respiratory Rate Blood Pressure 117/56 120/57 121/59 Blood Pressure [Left] O2 Sat by Pulse Oximetry 09/21/19 09/21/19 09/21/19 18:33 18:38 18:43 Temperature Pulse Rate 85 86 80 Respiratory Rate Blood Pressure Blood Pressure [Left] O2 Sat by Pulse 99 99 99 Oximetry 09/21/19 09/21/19 09/21/19 18:47 18:48 18:50 Temperature Pulse Rate 90 92 H 100 H Respiratory Rate Blood Pressure 136/73 138/80 Blood Pressure [Left] O2 Sat by Pulse 100 Oximetry 09/21/19 09/21/19 09/21/19 18:53 18:55 18:57 Temperature Pulse Rate 90 96 H 91 H Respiratory Rate Blood Pressure 135/68 124/62 137/68 Blood Pressure [Left] O2 Sat by Pulse 100 Oximetry 09/21/19 09/21/19 09/21/19 18:58 18:59 19:01 Temperature Pulse Rate 88 91 H 91 H Respiratory Rate Blood Pressure 151/63 131/59 Blood Pressure [Left] O2 Sat by Pulse 100 Oximetry 09/21/19 09/21/19 09/21/19 19:03 19:06 19:08 Temperature Pulse Rate 89 89 101 H Respiratory Rate Blood Pressure 126/59 129/60 Blood Pressure [Left] O2 Sat by Pulse 98 97 Oximetry 09/21/19 09/21/19 09/21/19 19:11 19:13 19:16 Temperature Pulse Rate 93 H 95 H 88 Respiratory Rate Blood Pressure 111/54 109/53 Blood Pressure [Left] O2 Sat by Pulse 98 Oximetry 09/21/19 09/21/19 09/21/19 19:18 19:21 19:23 Temperature Pulse Rate 92 H 91 H 107 H Respiratory Rate Blood Pressure 102/48 Blood Pressure [Left] O2 Sat by Pulse 97 97 Oximetry 09/21/19 09/21/19 09/21/19 19:25 19:28 19:30 Temperature Pulse Rate 80 73 73 Respiratory Rate Blood Pressure 95/48 95/49 Blood Pressure [Left] O2 Sat by Pulse 100 Oximetry 09/21/19 09/21/19 09/21/19 19:32 19:33 19:34 Temperature Pulse Rate 73 78 78 Respiratory Rate Blood Pressure 81/45 86/49 Blood Pressure [Left] O2 Sat by Pulse 100 Oximetry 09/21/19 09/21/19 09/21/19 19:37 19:38 19:40 Temperature 98.2 F Pulse Rate 65 71 72 Respiratory 18 Rate Blood Pressure 89/50 97/51 88/45 Blood Pressure 97/51 [Left] O2 Sat by Pulse 100 100 Oximetry 09/21/19 09/21/19 09/21/19 19:42 19:43 19:44 Temperature Pulse Rate 85 74 80 Respiratory Rate Blood Pressure 91/53 90/45 Blood Pressure [Left] O2 Sat by Pulse 100 Oximetry 09/21/19 09/21/19 09/21/19 19:46 19:48 19:52 Temperature Pulse Rate 75 75 71 Respiratory Rate Blood Pressure 93/50 85/42 Blood Pressure [Left] O2 Sat by Pulse 100 Oximetry 09/21/19 09/21/19 09/21/19 19:53 19:57 19:58 Temperature Pulse Rate 73 80 79 Respiratory Rate Blood Pressure 88/48 Blood Pressure [Left] O2 Sat by Pulse 100 100 Oximetry 09/21/19 09/21/19 09/21/19 20:02 20:03 20:07 Temperature Pulse Rate 74 79 59 L Respiratory Rate Blood Pressure 89/49 85/48 Blood Pressure [Left] O2 Sat by Pulse 100 Oximetry 09/21/19 09/21/19 09/21/19 20:08 20:12 20:13 Temperature Pulse Rate 95 H 99 H 96 H Respiratory Rate Blood Pressure 87/54 Blood Pressure [Left] O2 Sat by Pulse 100 100 Oximetry 09/21/19 09/21/19 09/21/19 20:17 20:18 20:23 Temperature Pulse Rate 82 83 87 Respiratory Rate Blood Pressure 101/51 111/46 Blood Pressure [Left] O2 Sat by Pulse 100 100 Oximetry 09/21/19 09/21/19 09/21/19 20:27 20:31 20:33 Temperature Pulse Rate 115 H 124 H 100 H Respiratory Rate Blood Pressure 102/53 143/84 Blood Pressure [Left] O2 Sat by Pulse 100 Oximetry 09/21/19 09/21/19 09/21/19 20:36 20:37 20:41 Temperature Pulse Rate 95 H 95 H 86 Respiratory Rate Blood Pressure 131/62 Blood Pressure [Left] O2 Sat by Pulse 100 100 Oximetry 09/21/19 09/21/19 09/21/19 20:43 20:46 20:47 Temperature Pulse Rate 93 H 91 H 90 Respiratory Rate Blood Pressure 133/67 125/59 Blood Pressure [Left] O2 Sat by Pulse 100 Oximetry 09/21/19 09/21/19 09/21/19 20:51 20:52 20:56 Temperature Pulse Rate 88 86 76 Respiratory Rate Blood Pressure 118/56 Blood Pressure [Left] O2 Sat by Pulse 100 99 Oximetry 09/21/19 09/21/19 09/21/19 20:57 21:01 21:03 Temperature Pulse Rate 77 83 104 H Respiratory Rate Blood Pressure 118/58 Blood Pressure [Left] O2 Sat by Pulse 100 93 Oximetry 09/21/19 09/21/19 09/21/19 21:06 21:09 21:11 Temperature Pulse Rate 96 H 111 H 93 H Respiratory Rate Blood Pressure 92/44 Blood Pressure [Left] O2 Sat by Pulse 98 97 Oximetry 09/21/19 09/21/19 09/21/19 21:13 21:16 21:17 Temperature Pulse Rate 75 81 78 Respiratory Rate Blood Pressure 103/53 93/48 Blood Pressure [Left] O2 Sat by Pulse 97 Oximetry 09/21/19 09/21/19 09/21/19 21:21 21:23 21:26 Temperature Pulse Rate 79 78 82 Respiratory Rate Blood Pressure 102/53 Blood Pressure [Left] O2 Sat by Pulse 97 97 Oximetry 09/21/19 09/21/19 09/21/19 21:27 21:31 21:33 Temperature Pulse Rate 82 89 75 Respiratory Rate Blood Pressure 93/46 98/53 Blood Pressure [Left] O2 Sat by Pulse 98 Oximetry 09/21/19 09/21/19 09/21/19 21:36 21:38 21:41 Temperature Pulse Rate 88 78 78 Respiratory Rate Blood Pressure 96/54 Blood Pressure [Left] O2 Sat by Pulse 95 94 Oximetry 09/21/19 09/21/19 09/21/19 21:43 21:46 21:47 Temperature Pulse Rate 77 95 H 76 Respiratory Rate Blood Pressure 102/51 92/53 Blood Pressure [Left] O2 Sat by Pulse 96 Oximetry 09/21/19 09/21/19 09/21/19 21:49 21:51 21:52 Temperature Pulse Rate 84 91 H 84 Respiratory Rate Blood Pressure 92/54 Blood Pressure [Left] O2 Sat by Pulse 94 96 Oximetry 09/21/19 09/21/19 09/21/19 21:56 21:58 22:01 Temperature Pulse Rate 84 95 H 104 H Respiratory Rate Blood Pressure 94/53 Blood Pressure [Left] O2 Sat by Pulse 94 99 Oximetry - Exam Breasts: normal Cardiovascular: Regular rate Lungs: Clear to auscultation, Normal air movement Abdomen: Present: normal appearance, soft Vulva: both: normal Uterus: Present: normal, fundal height at umbilicus FHR: category 1 Uterine Contraction Monitor Mode: Internal Cervical Dilatation: 6.5 Cervical Effacement Percentage: 80 station: -1 Uterine Contraction Frequency (min): 2-5 Uterine Contraction Duration: 60 Uterine Contraction Pattern: Regular Uterine Tone Measurement Phase: Contraction Uterine Contraction Intensity: Mild Extremities: normal Deep Tendon Reflex Grade: Normal +2 - Labs Labs: Abnormal Labs 09/20/19 23:40 Hct 30.1 L RDW 15.4 H Seg Neutrophils % 70.3 H Laboratory Results - last 24 hr 09/20/19 09/20/19 23:40 23:40 WBC 10.5 RBC 3.65 Hgb 10.2 Hct 30.1 L MCV 83 MCH 28 MCHC 34 RDW 15.4 H Plt Count 309 Lymph % (Auto) 22.5 [place] % (Auto) 6.2 Eos % (Auto) 0.6 Baso % (Auto) 0.4 Lymph # 2.4 [place] # 0.7 Eos # 0.1 Baso # 0.0 Seg Neutrophils % 70.3 H Seg Neutrophils # 7.4 Blood Type B POSITIVE Antibody Screen Negative
[2019-09-21] MEDS ORDERED: BICITRA ORAL LIQD 30ML ONE (22:27)
[2019-09-21] MEDS ORDERED: METOCLOPRAMIDE 10 MG/2 ML INJ ONE (22:30)
[2019-09-21] MEDS ORDERED: ceFAZolin/Water 2 GM/20 ML 4 GM/40 ML SYRINGE IV ONE (22:30)
[2019-09-21] MEDS ORDERED: LIDOCAINE MPF (2%) 20 MG/1 ML VIAL 5 ML ONE (22:33)
[2019-09-21] MEDS ORDERED: LACTATED RINGERS 1,000 ML IV SCH (23:00)
[2019-09-21] MEDS ORDERED: OXYTOCIN 10 UNIT/1 ML INJ ONE (23:10)
[2019-09-21] MEDS ORDERED: ONDANSETRON 4 MG/2 ML INJ ONE (23:10)
[2019-09-21] MEDS ORDERED: KETOROLAC 30 MG/1 ML INJ ONE ×2 (23:10→23:17)
[2019-09-21] MEDS ORDERED: BUPIVACAINE/PF (0.5%) 5 MG/1 ML 30 ML VIAL INFILTRATI ONE (23:26)
--- NOTE | 2019-09-21 23:47 | Event Note ---
Date: 09/21/19 Late entry: shortly after last note, FHT began having deep variables unresolved with position changes and nursing intervention. Advised we need to proceed to operative d/t intolerance to labor and failure to progress. Dr. Maciel updated. Patient and s/o verbalized understanding. Consents signed, pre- op orders in EMR.
--- NOTE | 2019-09-22 00:05 | Operative Report ---
Operative Report Operative Report: Date of procedure: 09/21/2019 Pre-operative diagnosis: 41 weeks gestation Meconium stained fluid Failure to progress intolerance to labor Post-operative diagnosis: Same plus uterine fibroids and 4+ meconium Procedure name(s): Primary low transverse section via Pfannenstiel skin incision Surgeon: Dr. Maciel Early Breastfeeding Care Specialist: Marie Hansen, certified nurse nurse anesthesia program director Anesthesia: Epidural EBL: 900 mL Urine output: 200 mL of clear urine out at end of procedure Fluids: 1200 mL Findings: Liveborn female infant weight 6 pounds 10 ounces Apgars of 8 and 9 at 1 and 5 minutes Thick particulate yellow meconium meconium stained amniotic membranes thick meconium staining on the baby Approximately 1 to 2 cm fibroids noted on the fundal surface of the uterus Grossly normal fallopian tubes and ovaries bilaterally Indications: Patient admitted for induction of labor. Patient underwent spontaneous rupture membranes in which clear fluid was noted. Patient progressed approximately 7 cm without progression after several hours as well as having repetitive deep variables with contractions. Decision was made to proceed with primary section. All risks benefits and alternatives were discussed with the patient. Consents were signed and placed on chart. Procedure: Patient was taking to the operating room. Patient was then prepped and draped in sterile fashion after anesthesia was found to be adequate. A low transverse skin incision was made with the scalpel and carried down to the underlying layer of fascia with the Bovie. The fascia was then incised in the midline and this incision was extended bilaterally with the Bovie. The superior aspect of the fascia was grasped with Jennifer clamps tented upward and dissected off of the anterior rectus muscles with the scalpel. In similar fashion the inferior aspect of the fascia was grasped with Jennifer clamps tented upward and dissected off of the anterior rectus muscles. The rectus muscles were then bluntly divided in the midline. The peritoneum was identified and entered into sharply. The bladder blade was placed. The bladder flap was created using the Metzenbaum scissors. The bladder blade was replaced. A lower transverse uterine incision was made with the scalpel and extended bilaterally with the bandage scissors. Entry into the uterus yielding thick particulate 4+ meconium. The infant's head was then delivered atraumatically. The anterior shoulder and rest of infant delivered without difficulty. The umbilical cord was clamped x2. The cord was cut. The infant was then placed in sterile bassinet. [The cord blood was collected.] The placenta was manually extracted in its entirety. The uterus was exteriorized and cleared of all clots and debris. The uterine incision was closed using 0 Vicryl in a running locking fashion. A second imbricating layer of the same suture was then created. The posterior cul-de-sac was copiously irrigated. The uterus was returned to the abdomen. The gutters were also irrigated. The anterior rectus muscles were reapproximated using 3-0 Vicryl. The anterior rectus fascia was reapproximated using 0 Vicryl in a running fashion. The subcuticular fat was reapproximated using 2-0 Vicryl in a running fashion. The skin was reapproximated with 4-0 Monocryl in a subcuticular stitch. The patient tolerated the procedure well. Sponge lap and needle counts were all correct x3. Patient was taken to the recovery room awake and in stable condition.
--- NOTE | 2019-09-22 00:18 | Anesthesia Day of Surgery ---
Anesthesia Day of Surgery - Day of Surgery Patient Examined: Yes Patient H&P Reviewed: Yes Patient is NPO: Yes Beta Blockers: No Cardiac Clearance: No Pulmonary Clearance: No David's Test: N/A
--- NOTE | 2019-09-22 00:18 | Post Anesthesia Evaluation ---
- Post Anesthesia Evaluation Patient Participated: Yes Airway Patent: Yes Stable Respiratory Function: Yes Nausea/Vomiting: No Temp > 96.8F: Yes Pain Manageable: Yes Adequeate Hydration: Yes Anesthesia Complications: No Block Receding Appropriately: Yes Patient on Ventilator: No
[2019-09-22] MEDS ORDERED: HYDROmorphone 1 MG/1 ML INJ IV PRN (00:27)
[2019-09-22] MEDS ORDERED: ONDANSETRON 4 MG/2 ML INJ IV PRN ×2 (00:27→03:13)
[2019-09-22] MEDS ORDERED: MORPHINE 4 MG/1 ML INJ IV PRN (03:13)
[2019-09-22] MEDS ORDERED: LANOLIN/ZINC/DIMETHICONE (LANSINOH) 7 GM TP PRN (03:13)
[2019-09-22] MEDS ORDERED: MAGNESIUM HYDROXIDE (MOM) ORAL LIQD UDC PO PRN (03:13)
[2019-09-22] MEDS ORDERED: OXYTOCIN 20 UNIT/1000ML DRIP 20 UNITS/1,000 ML BAG IV SCH (03:13)
[2019-09-22] MEDS ORDERED: KETOROLAC 30 MG/1 ML INJ IV PRN (03:13)
[2019-09-22] MEDS ORDERED: ACETAMINOPHEN 325 MG TAB PO PRN (03:13)
[2019-09-22] MEDS ORDERED: NALOXONE 0.4 MG/1 ML INJ IV PRN (03:13)
[2019-09-22] MEDS ORDERED: WITCH HAZEL/ GLYCERIN PAD TP PRN (03:13)
[2019-09-22] MEDS: IBUPROFEN 800 MG TAB PO SCH ×3 (06:20→17:27)
--- NOTE | 2019-09-22 07:19 | Progress Note ---
Assessment and Plan - Patient Problems (1) delivery delivered Onset Date: ~09/21/19 Current Visit: Yes Status: Acute Plan to address problem: Pt in good spirits C/O some incision pain Binder ordered. VSS H&H pending Stable s/p section P; continue pathway Advance diet and activity as tolerated. Subjective - Subjective Date of service: 09/22/19 (breast feeding NB) Principal diagnosis: 12hr s/p primary c/s Patient reports: voiding normally (clear yellow urine) [place]: doing well Objective - Vital Signs Latest vital signs: Vital Signs Temp Pulse Resp BP BP Pulse Ox 09/22/19 06:22 18 09/22/19 02:05 86 14 116/78 100 09/22/19 01:55 84 14 115/65 96 09/22/19 01:21 85 12 104/41 100 09/22/19 01:16 88 12 107/59 100 09/22/19 01:05 87 16 104/57 100 09/22/19 00:59 83 17 97/48 99 09/22/19 00:46 93 H 16 109/60 99 09/22/19 00:31 79 20 86/59 100 09/22/19 00:23 86 14 90/44 99 09/22/19 00:15 98.7 F 84 13 116/54 100 09/21/19 22:21 72 100 09/21/19 22:16 79 99 09/21/19 22:11 81 100 09/21/19 22:06 79 97 09/21/19 22:01 104 H 99 09/21/19 21:58 95 H 94/53 09/21/19 21:56 84 94 09/21/19 21:52 84 92/54 09/21/19 21:51 91 H 96 09/21/19 21:49 84 94 09/21/19 21:47 76 92/53 09/21/19 21:46 95 H 96 09/21/19 21:43 77 102/51 09/21/19 21:41 78 94 09/21/19 21:38 78 96/54 09/21/19 21:36 88 95 09/21/19 21:33 75 98/53 09/21/19 21:31 89 98 09/21/19 21:27 82 93/46 09/21/19 21:26 82 97 09/21/19 21:23 78 102/53 09/21/19 21:21 79 97 09/21/19 21:17 78 93/48 09/21/19 21:16 81 97 09/21/19 21:13 75 103/53 09/21/19 21:11 93 H 97 09/21/19 21:09 111 H 92/44 09/21/19 21:06 96 H 98 09/21/19 21:03 104 H 93 09/21/19 21:01 83 100 09/21/19 20:57 77 118/58 09/21/19 20:56 76 99 09/21/19 20:52 86 118/56 09/21/19 20:51 88 100 09/21/19 20:47 90 125/59 09/21/19 20:46 91 H 100 09/21/19 20:43 93 H 133/67 09/21/19 20:41 86 100 09/21/19 20:37 95 H 131/62 09/21/19 20:36 95 H 100 09/21/19 20:33 100 H 143/84 09/21/19 20:31 124 H 100 09/21/19 20:27 115 H 102/53 09/21/19 20:23 87 111/46 100 09/21/19 20:18 83 100 09/21/19 20:17 82 101/51 09/21/19 20:13 96 H 100 09/21/19 20:12 99 H 87/54 09/21/19 20:08 95 H 100 09/21/19 20:07 59 L 85/48 09/21/19 20:03 79 100 09/21/19 20:02 74 89/49 09/21/19 19:58 79 100 09/21/19 19:57 80 88/48 09/21/19 19:53 73 100 09/21/19 19:52 71 85/42 09/21/19 19:48 75 100 09/21/19 19:46 75 93/50 09/21/19 19:44 80 90/45 09/21/19 19:43 74 100 09/21/19 19:42 85 91/53 09/21/19 19:40 98.2 F 72 18 88/45 97/51 100 09/21/19 19:38 71 97/51 100 09/21/19 19:37 65 89/50 09/21/19 19:34 78 86/49 09/21/19 19:33 78 100 09/21/19 19:32 73 81/45 09/21/19 19:30 73 95/49 09/21/19 19:28 73 100 09/21/19 19:25 80 95/48 09/21/19 19:23 107 H 97 09/21/19 19:21 91 H 102/48 09/21/19 19:18 92 H 97 09/21/19 19:16 88 109/53 09/21/19 19:13 95 H 98 09/21/19 19:11 93 H 111/54 09/21/19 19:08 101 H 97 09/21/19 19:06 89 129/60 09/21/19 19:03 89 126/59 98 09/21/19 19:01 91 H 131/59 09/21/19 18:59 91 H 151/63 09/21/19 18:58 88 100 09/21/19 18:57 91 H 137/68 09/21/19 18:55 96 H 124/62 09/21/19 18:53 90 135/68 100 09/21/19 18:50 100 H 138/80 09/21/19 18:48 92 H 100 09/21/19 18:47 90 136/73 09/21/19 18:43 80 99 09/21/19 18:38 86 99 09/21/19 18:33 85 99 09/21/19 18:22 71 121/59 09/21/19 17:52 84 120/57 09/21/19 17:22 77 117/56 09/21/19 16:51 85 138/84 09/21/19 16:30 98.0 F 18 09/21/19 16:22 82 115/55 09/21/19 15:22 105 H 131/86 09/21/19 14:52 76 116/58 09/21/19 14:30 98.0 F 20 09/21/19 14:21 83 134/63 09/21/19 13:52 76 136/81 09/21/19 13:22 79 135/78 09/21/19 12:52 82 129/64 09/21/19 12:23 85 127/65 09/21/19 11:55 98.2 F 18 09/21/19 11:54 84 121/61 09/21/19 10:22 83 128/83 09/21/19 10:18 102 H 105/68 09/21/19 09:21 91 H 129/86 09/21/19 09:10 97.9 F 20 09/21/19 08:52 87 113/68 09/21/19 08:21 100 H 117/76 09/21/19 07:51 93 H 113/78 09/21/19 07:31 92 H 98 09/21/19 07:30 92 H 94 09/21/19 07:26 85 96 09/21/19 07:21 93 H 137/63 97 Intake and Output 09/21/19 09/22/19 09/22/19 22:59 06:59 14:59 Intake Total 5775.403 2308 Output Total 150 900 Balance 1518.250 300 Intake: IV 3182.061 0408 AMPICILLIN/NS 1 GM/50 ML 50 1 gm In 50 ml @ 100 mls/ hr IV Q4HR LJ Rx#: [id number] Lactated Ringers 1,000 ml 1081.250 @ 125 mls/hr IV DIRECT LJ Rx#:[id number] PITOCin/NS 30 UNIT/500ML 37 30 units In 500 ml @ 4 mls/hr IV TITR LJ Rx#: [id number] Intake, Free Water 500 Output: Urine 900 Uretheral ([place]) 700 Emesis 150 Other: Total, Output Amount 150 # Voids Void 5 # Bowel Movements 1 Weight 278 lb - Exam Breasts: Present: normal Cardiovascular: Present: Regular rate Lungs: Present: Normal air movement Abdomen: Present: normal appearance, soft, normal bowel sounds Uterus: Present: normal, fundal height below umbilicus Extremities: Present: normal Incision: Present: normal, dry, intact, dressed (removed later today)
[2019-09-22] MEDS: ceFAZolin/NS 1 GM/50 ML 1 GM/50 ML BAG IV SCH ×2 (08:08→16:30)
[2019-09-22] MEDS: PRENATAL VIT27-FE FUMARATE-FOLIC ACID VIT TAB PO SCH (09:07)
[2019-09-22] MEDS ORDERED: FERROUS SULFATE 325 MG TAB PO SCH (10:00)
[2019-09-22] MEDS: HYDROcodone/ACETAMINOPHEN 5-325 MG TAB PO PRN (10:35)
[2019-09-22 14:12] LABS: Hemoglobin 7.7 gm/dl (10.1-14.3)
[2019-09-22 14:44] LABS: Hematocrit 23.1 % (30.3-42.9)
[2019-09-22] MEDS: FERROUS SULFATE 325 MG TAB PO SCH (21:48)
[2019-09-22] MEDS: SENNOSIDES 8.6 MG TAB PO PRN (21:49)
[2019-09-23] MEDS: IBUPROFEN 800 MG TAB PO SCH ×3 (00:31→15:44)
[2019-09-23] MEDS ORDERED: DIPHtheria,PERTUSSIS(ACELL),TETANUS VACCINE/PF 0.5 ML VIAL IM ONE (06:00)
--- NOTE | 2019-09-23 08:15 | Progress Note ---
Assessment and Plan Pt resting in bed quietly with no s/s of distress. Rates pain 6/10 that is well controlled with pain medication. VSSAF. Post-op H/H 12/15. Receiving PO iron supplementation. Reports feeling lightheaded while laying in bed currently. Denies SOB, chest pain, or blurry vision. Ambulating with assistance and voiding without difficulty. Incision open to air with steri strips clean, dry, and intact. ABD binder in place. Fundus firm at umbilicus. Light vaginal bleeding. Breast and bottle feeding. Reports sometimes has difficulty latching. No plans for PP contraception at this time. P: Continue PP pathway. Will d/c home tomorrow pending no complications. - Patient Problems (1) delivery delivered Onset Date: ~09/21/19 Current Visit: Yes Status: Acute Subjective - Subjective Date of service: 09/23/19 Principal diagnosis: Day #1 s/p primary C/S r/t NRFHT's Patient reports: appetite normal, voiding normally, pain well controlled, flatus, ambulating normally [place]: doing well Objective - Vital Signs Latest vital signs: Vital Signs Temp Pulse Resp BP Pulse Ox 09/23/19 00:33 98.5 F 81 113/66 09/22/19 16:17 98 F 90 18 106/59 98 Intake and Output 09/22/19 09/23/19 09/23/19 22:59 06:59 14:59 Intake Total 720 500 Output Total 1950 Balance -1230 500 Intake: Oral 200 Intake, Free Water 720 300 Output: Urine 1950 Void 1950 Other: Total, Intake Amount 200 Total, Output Amount 150 # Voids Void 1 1 - Exam Breasts: Present: deferred Lungs: Present: Normal air movement Abdomen: Present: normal appearance, soft Uterus: Present: normal, firm, fundal height at umbilicus Extremities: Present: normal Deep Tendon Reflex Grade: Normal +2 Incision: Present: normal, dry, intact (Steri-strips in place) - Labs Labs: Abnormal lab results 09/22/19 Range/Units 13:51 Hgb 7.7 L (10.1-14.3) gm/dl Hct 23.1 L D (30.3-42.9) %
[2019-09-23] MEDS: PRENATAL VIT27-FE FUMARATE-FOLIC ACID VIT TAB PO SCH (08:47)
[2019-09-23] MEDS: FERROUS SULFATE 325 MG TAB PO SCH ×3 (08:47→21:37)
[2019-09-23] MEDS: HYDROcodone/ACETAMINOPHEN 5-325 MG TAB PO PRN (21:37)
[2019-09-23] MEDS: SENNOSIDES 8.6 MG TAB PO PRN (21:37)
[2019-09-24] MEDS: IBUPROFEN 800 MG TAB PO SCH ×2 (04:10→12:06)
[2019-09-24] MEDS: SIMETHICONE 80 MG CHEW TAB PO PRN ×2 (04:10→08:13)
--- NOTE | 2019-09-24 08:05 | Discharge Summary ---
Providers - Providers Date of Admission: 09/20/19 20:46 Date of discharge: 09/24/19 (Pt desires to go home.) Attending physician: JEAN PIERRE PETERSON Primary care physician: JEAN PIERRE PETERSON Hospitalization Reason for admission: active labor Delivery: Procedure: section, primary low transverse Episiotomy: none Laceration: none Incision: normal, dry (Open to air, no drainage and not s/sx of infection.), intact complications: none Discharge diagnosis: IUP at term delivered baby: female Hospital course: S: Pt doing well. Ambulating, voiding, and passing flatus without difficulty. Pt states pain controlled with pain medication. BC: Undecided. O: VSS. H/H 7.7/23.1. Incision open to air, intact, no drainage or s/sx of infection. A: 24 y.o. s/ d/t intolerance to labor. Stable for discharge home. P: Discharge home with instructions. Please follow up in the office in 1 week for an incision check. Please schedule visit in 4 weeks. Condition at discharge: Good Disposition: DC-01 TO HOME OR SELFCARE - Discharge Diagnoses (1) Post-dates Status: Resolved (2) GBS (group B streptococcus) infection Status: Resolved Plan - Discharge Medications Prescriptions: Docusate Sodium [Colace] 100 mg PO BID PRN #60 capsule PRN Reason: Constipation Ferrous Sulfate [Feosol 325 MG tab] 325 mg PO QDAY #60 tablet Ibuprofen [Motrin 800 MG tab] 800 mg PO Q8HR PRN #30 tablet PRN Reason: Pain, Moderate (4-6) oxyCODONE /ACETAMINOPHEN [Percocet 5/325] 1 tab PO Q4HR #30 tab - Provider Discharge Summary Activity: routine, no sex for 6 weeks, no heavy lifting 4 weeks, no strenuous exercise Diet: routine Instructions: routine Additional instructions: [] Smoking cessation referral if applicable(refer to patient education folder for contact #) [] Refer to [facility] Booklet Call your doctor immediately for: * Fever > 100.5 * Heavy vaginal bleeding ( >1 pad per hour) * Severe persistent headache * Shortness of breath * Reddened, hot, painful area to leg or breast * Drainage or odor from incision. * Keep incision clean and dry at all times and follow doctor's instructions regarding bathing/showering - Follow up plan Follow up: JEAN PIERRE PETERSON MD [Primary Care Provider] - 7 Days (Congratulations!!! Please schedule an appointment in the office in 1 week to check your incision. Please schedule a visit in 4 weeks. Take all medication as prescribed. If you have any questions or concerns, please do not hesitate to call the office. ) Forms: C Discharge Summary, Discharge Signature Page
[2019-09-24] MEDS: PRENATAL VIT27-FE FUMARATE-FOLIC ACID VIT TAB PO SCH (08:13)
[2019-09-24] MEDS: FERROUS SULFATE 325 MG TAB PO SCH ×2 (08:13→14:16)
[2019-09-24] MEDS: HYDROcodone/ACETAMINOPHEN 5-325 MG TAB PO PRN (08:14)
[2019-09-24 16:29] VITALS: BP 115/62
== END 2019-09-24 14:30 | disposition home or self-care (01) | DRG 765 ==
LOC: LD 20:46 → OB 09-22 02:06
PROVIDERS: ADMIT Obstetrics & Gynecology; ATTEND Obstetrics & Gynecology
PROC: 10D00Z1 Extraction of Products of Conception, Low, Open Approach (ICD-10-PCS; principal; 2019-09-21)
PROC: 10H07YZ Insertion of Other Device into Products of Conception, Via Natural or Artificial Opening (ICD-10-PCS; 2019-09-21)
PROC: 3E0234Z Introduction of Serum, Toxoid and Vaccine into Muscle, Percutaneous Approach (ICD-10-PCS; 2019-09-23)
DX: O77.0 Labor and delivery complicated by meconium in amniotic fluid (principal); O98.82 Other maternal infectious and parasitic diseases complicating childbirth; B95.1 Streptococcus, group B, as the cause of diseases classified elsewhere; O48.0 Post-term pregnancy; O99.214 Obesity complicating childbirth; E66.9 Obesity, unspecified; O34.13 Maternal care for benign tumor of corpus uteri, third trimester; D25.9 Leiomyoma of uterus, unspecified; Z3A.41 41 weeks gestation of pregnancy; Z37.0 Single live birth
CPT/HCPCS: 36415; 85014; 85018; 85025; 86850; 86900; 86901; 88307; G0378; A6250; J0290; J0690; J1885; J2405; J2590; J2765; J3010; J3490; J7120